=== PATIENT | female | born 1930 | race Caucasian/White ===

== ENCOUNTER 2017-11-05 13:18 | Inpatient (IN) | payer MEDICARE ==
[2017-11-05] MEDS ORDERED: Enoxaparin Sodium 60 MG/0.6 ML SYRINGE ONE (14:01)
[2017-11-05] MEDS ORDERED: Magnesium Sulfate 2 GM/100 ML BAG ONE (14:01)
[2017-11-05 15:55] LABS: Bilirubin Negative (Negative); Blood, Urine Negative (Negative); Clarity CLOUDY (Clear); Glucose, Urine (Dipstick) 100 mg/dL (Negative); Leukocyte Small (Negative); Nitrite Positive (Negative); Protein, Urine (Dipstick) Negative (Neg-Trace); Specific Gravity, Urine 1.018 (1.002-1.036); Urobilinogen 0.2 mg/dL (0.2-1.0)
[2017-11-05 15:56] LABS: Bacteria/HPF 4+ HPF (None Seen); Hyaline Casts/LPF 0-3 HYALINE CAST LPF (0-3 Hyaline); Squamous Epithelial 0-3 HPF (0-3)
[2017-11-05 15:58] LABS: Yeast-AUWi Flag 88.4 (0-25.0)
[2017-11-05 16:06] LABS: RBC/HPF None Seen HPF (0-3); Yeast-All Forms None Seen HPF (None Seen)
[2017-11-05 18:20] VITALS: BMI 23.2
[2017-11-05] MEDS ORDERED: hydrALAZINE 20 MG/ML VIAL SLOW IVP PRN (18:55)
[2017-11-05] MEDS ORDERED: HumaLOG 300 UNITS/3 ML VIAL SC PRN ×2 (18:55)
[2017-11-05] MEDS ORDERED: Acetaminophen 500 MG TAB PO PRN (18:55)
[2017-11-05] MEDS ORDERED: Dextrose 50% Abboject 50 ML SYRINGE SLOW IVP PRN (18:55)
[2017-11-05] MEDS ORDERED: Dextrose 5% in Water 1,000 ML IV PRN (18:55)
[2017-11-05] MEDS ORDERED: Ondansetron HCl/PF 4 MG/2 ML Vial IVP PRN (18:55)
[2017-11-05] MEDS ORDERED: Ondansetron ODT 4 MG TAB PO PRN (18:55)
[2017-11-05] MEDS ORDERED: cloNIDine 0.1 MG TAB PO PRN (18:55)
[2017-11-05] MEDS ORDERED: Aspirin 81 mg Enteric Coated Tablet PO SCH (19:00)
[2017-11-05] MEDS: Carbidopa/Levodopa 25-250 mg Tablet PO SCH (20:53)
[2017-11-05] MEDS: Famotidine 20 MG TAB PO SCH (20:54)
[2017-11-05] MEDS ORDERED: Donepezil HCl 10 MG TAB PO SCH (21:00)
[2017-11-05] MEDS ORDERED: FLUOCINONIDE 0.05% TOP SCH (21:00)
[2017-11-05] MEDS ORDERED: Amitriptyline HCl 25 MG TAB PO SCH (21:00)
[2017-11-05] MEDS ORDERED: Betamethasone Val 0.1% Lotion 60 ML BOT TOP SCH ×2 (21:00)
--- NOTE | 2017-11-06 03:27 | HP ---
DATE OF ADMISSION: 11/05/2017 PRIMARY CARE PHYSICIAN: Jimmie Denise M.D. CHIEF COMPLAINT: Heart palpitations. HISTORY OF PRESENT ILLNESS: This is an 87-year-old female who presented to [facility] after abrupt onset of palpitations. The patient states she felt generally weak, h ad trouble focusing her eyes and felt off balance. The patient states the symptoms began approximate ly 9:00 a.m. on 11/05/2017 with a history of long-term management for atrial arrhythmia with digoxin. The patient states she was recently placed on prednisone after a "muscle pull" after cleaning out h er garage. The patient denied any other change to her chronic medication regimen or exposure history . The patient denied any fever, chills, nausea, vomiting, diarrhea or chest pain. The patient denie d any travel history, prolonged sitting, recent falls or injuries. The patient denied any specific i ncreased caffeine intake or caffeine intake. The patient denied any specific change to her activity level, but her daughter reports some decreased overall activities due to diagnosis of Parkinson's and some difficulty ambulating outside. The patient states she did not try any home remedy to alleviate her symptoms and presented to the emergency room for evaluation. In the emergency room, the patient was noted with atrial fibrillation with rapid ventricular response with heart rates in the 120s to 1 30s. The patient was treated with IV digoxin in addition to intravenous diltiazem after a 20 mg bolu s. The patient also received intravenous fluids and potassium chloride supplement. The patient was transferred to the telemetry unit for evaluation and apparently converted to sinus mechanism prior to arrival. The patient denied any previous history of similar events, anticoagulation treatment or lo ng-term aspirin therapy. PAST MEDICAL HISTORY: 1. Question of atrial arrhythmia, treated with digoxin. 2. Parkinson's disease. 3. Question of early dementia. 4. Diabetes mellitus, type 2. 5. Hypertension. 6. Mitral valve regurgitation. 7. Coronary artery disease. 8. Acute angle closure glaucoma. 9. History of gait disturbance. 10. History of syncope, noncardiac, likely noncardiac etiology. 11. Hyperlipidemia. PAST SURGICAL HISTORY: Reviewed and negative. CURRENT MEDICATIONS: 1. Amitriptyline 25 mg 1 tab p.o. at bedtime. 2. Prednisone 4 mg 1 tab p.o. daily. 3. Amlodipine 10 mg 1 tab p.o. daily. 4. Carbidopa/levodopa 25/250 mg 2 tabs p.o. t.i.d. 5. Digoxin 125 mcg p.o. daily. 6. Donepezil 10 mg p.o. at bedtime. 7. Synalar 0.05% 1 drop to each eye at bedtime. 8. Amaryl 4 mg 1 tab p.o. daily. 9. HCTZ 25 mg 1 tab p.o. daily. 10. Lisinopril 20 mg 1 tab p.o. daily. 11. Metformin 500 mg p.o. t.i.d. ALLERGIES: No known drug allergies. FAMILY HISTORY: Father at the age of 95 secondary to complications of advanced age. Mother d at 76 due to cardiac problems and questionable cancer. SOCIAL HISTORY: The patient is , resides in [place], [place], near her daughters. No current alcohol, tobacco or illicit drug use. Ambulates with a 4-wheeled walker. No recent falls. REVIEW OF SYSTEMS: The following complete review of systems was negative, unless otherwise mentioned in the HPI or below: Constitutional: Weight loss or gain, ability to conduct usual activities. Skin: Rash, itching. Eyes: Double vision, pain. ENT/Mouth: Nose bleeding, neck stiffness, pain, tenderness. Cardiovascular: Palpitations, dyspnea on exertion, orthopnea. Respiratory: Shortness of breath, wheezing, cough, hemoptysis, fever or night sweats. Gastrointestinal: Poor appetite, abdominal pain, heartburn, nausea, vomiting, constipation, or diarr hea. Genitourinary: Urgency, frequency, dysuria, nocturia. Musculoskeletal: Pain, swelling. Neurologic/Psychiatric: Anxiety, depression. Allergy/Immunologic: Skin rash, bleeding tendency. Otherwise negative except as stated per HPI. PHYSICAL EXAMINATION: VITAL SIGNS: On admission, blood pressure 153/70, pulse 68, respiratory rate 18, temperature 99.6 de grees Fahrenheit, O2 saturation 99% on room air. GENERAL APPEARANCE: This is an 87-year-old female, alert, pleasant, responsive, in no acut e distress. HEENT: Pupils are equal, round, and reactive to light and accommodation. Extraocular muscles are in tact. No scleral icterus, no conjunctival injection. Nares patent. OP is clear. Teeth in good rep air. NECK: Supple, no cervical adenopathy, no thyromegaly, no carotid bruits, no JVD appreciated. Cervic al spine with full active and passive range of motion. No meningeal signs appreciated. CHEST: Lungs are clear to auscultation bilaterally. CARDIOVASCULAR: S1, S2 with a 1-2/6 systolic ejection murmur, loudest in the right upper sternal bor krystle. ABDOMEN: Rounded, soft, nontender, nondistended. Bowel sounds are positive in all four quadrants. There is no hepatosplenomegaly, no abdominal bruits, no rebound or guarding appreciated. EXTREMITIES: Warm and dry with good turgor. No clubbing, cyanosis or asymmetric edema appreciated. Pulses palpable distally at the dorsalis pedis, posterior tibial, and popliteal arteries bilaterally . Capillary refill less than 2 seconds. NEUROLOGIC: Cranial nerves II-XII are grossly intact. No focal or lateralizing signs appreciated. PERTINENT LABORATORY AND X-RAY FINDINGS: Sodium 138, potassium 3.3, chloride 99, CO2 of 27, BUN 17, creatinine 0.75, estimated GFR is 73, glucose 217. Hemoglobin A1C 5.9 on 09/07/2017, calcium 9.5, LF Ts within normal limits. BNP 133, Troponin I negative x1. Albumin 4.0. TSH 1.12 on 11/05/2017. CB C within normal limits. Urinalysis positive for glucose, nitrites, small leukocyte esterase with 4-6 wbc's per high power field. Digoxin level 0.54 on 11/05/2017. Portable chest x-ray dated 7 showed no acute cardiopulmonary process. EKG dated 11/05/2017 by my interpretation shows atrial fi brillation with heart rates in the mid 115-120s. Normal R-wave progression noted in the precordial l [place]. Normal axis. ASSESSMENT AND PLAN: 1. Atrial fibrillation with rapid ventricular response. The patient admitted to the telemetry unit. We will continue Cardizem drip at 5 mg per hour. We will obtain 2D transthoracic echocardiogram in the a.m. to assess valvular function and ejection fraction. Consider titration of current digoxin r egimen from 125 mcg daily to 250 mcg daily. Start aspirin 81 mg p.o. daily. Check magnesium level i n the a.m. 2. Hypertension. Resume home antihypertensive regimen and monitor clinical response. 3. Diabetes mellitus, type 2. Insulin sliding scale for reflexive coverage. Resume home oral hypog lycemics. Insulin sliding scale for reflexive coverage. Accu-Cheks before meals and at bedtime. AD A diet. 4. Parkinson's disease. We will continue home regimen of carbidopa/levodopa 2 tabs p.o. t.i.d. 5. Prophylaxis. Sequential compression devices while in bed. Pepcid 20 mg p.o. b.i.d. 6. Code status is FULL. Surrogate medical decision maker is the patient's daughter.
[2017-11-06 06:07] LABS: Anion Gap 9 mmol/L (10-20); BUN (Urea Nitrogen) 13 mg/dL (9.8-20.1); Calc. Creatinine Clearance 58 mL/min (70-130); Calcium 8.5 mg/dL (7.8-10.44); Carbon Dioxide 28 mmol/L (23-31); Chloride 103 mmol/L (98-107); Estimated GFR-MDRD 86; Glucose 68 mg/dL (83-110); Magnesium 2.1 mg/dL (1.6-2.6); Potassium 3.5 mmol/L (3.5-5.1); Sodium 136 mmol/L (136-145)
[2017-11-06 07:46] LABS: Band 2 % (5-11); Eosinophils 1 % (0-10); Hemoglobin 10.7 g/dL (12.0-16.0); Lymphocytes 37 % (21-51); MDiff Complete? YES; Mean Corpuscular HGB CONC 32.4 g/dL (32.0-36.0); Mean Corpuscular Hemoglobin 28.2 pg (27.0-31.0); Mean Platelet Volume 6.5 fL (7.4-10.4); Monocytes 7 % (0-10); Neutrophil 53 % (42-75); Platelet Count 276 thou/uL (130-400); RBC Distribution Width 11.6 % (11.5-14.5); Red Blood Cell (RBC) Count 3.79 mill/uL (4.20-5.40)
[2017-11-06] MEDS: Carbidopa/Levodopa 25-250 mg Tablet PO SCH ×2 (08:26→15:25)
[2017-11-06] MEDS: Famotidine 20 MG TAB PO SCH (08:26)
[2017-11-06] MEDS: metFORMIN 500 MG TAB PO SCH ×2 (08:27→12:11)
[2017-11-06] MEDS ORDERED: Digoxin 0.125 MG TAB PO SCH (09:00)
[2017-11-06] MEDS ORDERED: Aspirin 81 mg Enteric Coated Tablet PO SCH (09:00)
[2017-11-06] MEDS ORDERED: Glimepiride 4 MG TAB PO SCH (09:00)
[2017-11-06] MEDS ORDERED: Lisinopril 20 MG TAB PO SCH (09:00)
[2017-11-06] MEDS ORDERED: Amlodipine 10 MG TAB PO SCH (09:00)
[2017-11-06] MEDS ORDERED: Hydrochlorothiazide 25 MG TAB PO SCH (09:00)
[2017-11-06 15:51] VITALS: BP 166/74; TEMP 98.2
--- NOTE | 2017-11-07 03:00 | DIS ---
DATE OF ADMISSION: 11/05/2017 DATE OF DISCHARGE: 11/06/2017 DISCHARGE DIAGNOSES: 1. Paroxysmal atrial fibrillation with rapid ventricular response with current sinus mechanism. 2. Hypertension, stable. 3. Diabetes mellitus type 2, stable. 4. Parkinson disease. CONSULTATIONS: None. PERTINENT LAB AND X-RAY FINDINGS: Basic metabolic profile within normal limits. Calcium 8.5, magnes ium 2.1. TSH 1.12. CBC showed a hemoglobin of 11, hematocrit 33, platelet count 276. A 2D transtho racic echocardiogram dated 11/06/2017 showed ejection fraction of 50%-55%. Diastolic dysfunction not ed, mild aortic and tricuspid regurgitation. HOSPITAL COURSE: Patient was admitted to the telemetry unit after initially presenting with palpitat ions with associated atrial fibrillation and rapid ventricular response. Patient was initially manag ed with Cardizem infusion with rapid conversion to sinus mechanism in less than 12 hours. Patient ma intained sinus mechanism through the remainder of the hospital course and was initiated on Coreg 6.25 mg b.i.d. in addition to Digoxin 0.125 mg daily. Patient was recommended for aspirin 81 mg daily an d hold anticoagulation at this time. Overall, patient remained clinically stable through the remaind er of the hospital course and ready for discharge on 11/06/2017. DISCHARGE MEDICATIONS: 1. Coreg 6.25 mg 1 tab p.o. b.i.d. 2. Digoxin 125 mcg 1 tab p.o. daily. 3. Amitriptyline 25 mg p.o. at bedtime. 4. Amlodipine 10 mg 1 tab p.o. daily. 5. Aspirin enteric coated 81 mg 1 tab p.o. daily. 6. Carbidopa/levodopa 25/250 mg 2 tabs p.o. t.i.d. 7. Donepezil 10 mg p.o. at bedtime. 8. Fluocinonide 0.05% 1 drop to each eye at bedtime. 9. Amaryl 4 mg p.o. daily. 10. HCTZ 25 mg p.o. daily. 11. Lisinopril 20 mg 1 tab p.o. daily. 12. Metformin 500 mg p.o. t.i.d. 13. Prednisone taper. FOLLOWUP: Patient will follow up with her primary care provider, Dr. Rob Denise within 7 days. CONDITION ON DISCHARGE: Stable. ACTIVITY: ad rell. DIET: Heart healthy and ADA. CODE STATUS: FULL. DISPOSITION: Home, 11/06/2017.
== END 2017-11-06 16:16 | disposition home or self-care (01) | DRG 310 ==
LOC: ERS 13:18 → 2NO 14:25
PROVIDERS: ADMIT Family Medicine; ATTEND Family Medicine
DX: I48.0 Paroxysmal atrial fibrillation (principal); G20 Parkinson's disease; E11.9 Type 2 diabetes mellitus without complications; I10 Essential (primary) hypertension; I25.10 Atherosclerotic heart disease of native coronary artery without angina pectoris; H40.20X0 Unspecified primary angle-closure glaucoma, stage unspecified; E78.5 Hyperlipidemia, unspecified; I34.0 Nonrheumatic mitral (valve) insufficiency; X50.0XXD Overexertion from strenuous movement or load, subsequent encounter; T14.8XXD Other injury of unspecified body region, subsequent encounter; Z79.52 Long term (current) use of systemic steroids
CPT/HCPCS: 36415; 36416; 80048; 81003; 81015; 83735; 84443; 85007; 85027; 93005; 93306; 96365; 96372; 96375; J0696; J1650; J3475

== ENCOUNTER 2019-02-14 00:44 | Observation (INO) | payer MEDICARE ==
--- NOTE | 2019-02-14 01:42 | PDOC.FPRHP ---
- History of Present Illness Chief Complaint: weakness History of Present Illness: 88yo F with pmh of dementia and DM presents as transfer from [facility] [facility] for generalized weakness and was found there to have UA showing UTI with lactic acidosis of 3.7 and lateral lead EKG changes. Pt reports that on 02/13 she started having bilateral lower extremety weakness. Pt has been declining for some time with dementia but this weakness was worse than before and she could not get herself out of the chair. Otherwise she has a negative extensive ROS as listed below. Pt was given Zosyn and 1L IVF in outside ER ED Course: see above - Allergies/Adverse Reactions Allergies Allergy/AdvReac Type Severity Reaction Status Date / Time No Known Allergies Allergy Verified 11/05/17 23:54 - Home Medications Medication Instructions Recorded Confirmed Type Amlodipine Besylate [amLODIPine 10 mg PO DAILY 12/30/15 02/14/19 History Besylate] Digoxin [Digitek] 125 mcg PO DAILY 12/30/15 02/14/19 History Hydrochlorothiazide 25 mg PO QAM 12/30/15 02/14/19 History Lisinopril 20 mg PO DAILY 12/30/15 02/14/19 History metFORMIN [Glucophage] 500 mg PO TID-WM 12/30/15 02/14/19 History Amitriptyline HCl 25 mg PO HS PRN 11/05/17 02/14/19 History Donepezil HCl 10 mg PO QAM 11/05/17 02/14/19 History Glimepiride [Amaryl] 4 mg PO DAILY 11/05/17 02/14/19 History Aspirin [Ecotrin Low Strength] 81 mg PO DAILY tab 11/06/17 02/14/19 Rx Carvedilol [Coreg] 6.25 mg PO BID #60 tab 11/06/17 02/14/19 Rx Carbidopa/Levodopa 2 tablet PO TID 02/14/19 02/14/19 History [Carbidopa/Levodopa ER] - History PMHx: Lewy body dementia, DM, HTN, a-fib PSHx: none FHx: CHF Social: denies t/a/d - Review of Systems General: denies: fever/chills, fatigue Eyes: denies: eye pain, vision changes ENT: denies: nasal congestion, rhinorrhea Respiratory: denies: cough, shortness of breath Cardiovascular: denies: chest pain, palpitation Gastrointestinal: denies: nausea, vomiting Genitourinary: denies: incontinence, dysuria, polyuria Skin: denies: rashes, lesions Musculoskeletal: denies: pain, tenderness Neurological: denies: syncope, seizure Psychological: denies: anxiety, depression - Vital signs BP: 162/80, Pulse: 86, Resp: 16, Temp: 98.5 (Oral), Pain: 0, O2 sat: 98 on Room Air, Time: 02/14/2019 00:45. weight 66kg - Physical Exam Constitutional: NAD, well developed HEENT: PERRLA, EOMI, grossly normal vision, grossly normal hearing Neck: supple, trachea midline Chest: no-tender to palpation, no lesions Heart: RRR, other (3/6 holosystolic murmur (old)) Lungs: CTAB, no wheezing Abdomen: soft, other (suprapubic tenderness) Musculoskeletal: normal structure, normal tone Neurological: no focal deficit, CN II-XII intact, normal sensation, DTRs 2+ -Neurological: impaired recent memory Skin: no rash/lesions, good turgor Heme/Lymphatic: no purpura, no petechia Psychiatric: normal mood and affect, good judgment and insight FMR H&P: A/P - Problem List (1) Lactic acid acidosis Current Visit: Yes Status: Acute Code(s): E87.2 - ACIDOSIS (2) UTI (urinary tract infection) Current Visit: Yes Status: Acute (3) Lewy body dementia Current Visit: Yes Status: Acute Code(s): G31.83 - DEMENTIA WITH LEWY BODIES ; F02.80 - DEMENTIA IN OTH DISEASES CLASSD ELSWHR W/O BEHAVRL DISTURB (4) Afib Current Visit: Yes Status: Acute Code(s): I48.91 - UNSPECIFIED ATRIAL FIBRILLATION - Plan Lactic Acidosis A- Likely 2/2 mild hypovolemia vs. UTI vs. diabetic etiology. Pt is hyperglycemic and is on metformin. Pt is questionable historian and appears mildly dry on exam. s/p 1L IVF P- continue LR 100/hr - repeat LA UTI A- UA shows positive nitrites. Pt denies dysuria but does not remeber talking to her daughter about pain on urination. Questionable hisorian, additionally she does have some mild suprapubic ttp. s/p zosyn P- start rocephin - f/u with lab if UCx were sent over from [place] bilateral leg weakness A- Likely 2/2 parkinsonian features of her lewy body dementia, digoxin lvl is sub therapeutic. CT brain negative and hx atypical for CVA. P- PT/OT consult Lewy body dementia - home meds HTN - home meds DM - home meds, SSI, accuchecks afib - home meds CODE: FULL FMR H&P: Upper Level - Pertinent history Denisha Gilbert is an 88 year old female with a history of Lewy body dementia who was transferred from [place] [facility] due lactic acidosis and abnormal EKG. She initially presented there due to sudden onset lower extremity weakness.She was also found to have a UTI. - Pertinent findings Exam General: alert and oriented to person and place. Lungs: celar to auscultation bilaterally Heart: regular rate and rhythm, 3/6 holosystolic murmur, rubs, or gallops. Abdomen: soft; suprapubic tenderness to palpation Extremities: normal bulk and tone; 5/5 strength throughout. Neuro: CN II-XII intact grossly; no focal deficits. CT head w/o contrast: negative for acute intracranial pathology. EKG: NSR; no ST elevations; ST-T changes in lateral leads, consistent with prior EKGs. - Plan Date/Time: 02/14/19 0140 IShiela, have evaluated this patient and agree with findings/plan as outlined by safety intern resident. Pertinent changes/additions are listed here. Lactic acidosis - normal renal function; no sepsis. - likely secondary to dehydration, s/p 1L bolus in ED; will continue maintenance. Lower extremity weakness - no weakness noted on exam. - likely related to Lewy body dementia; - PT consult to evaluate functional status. Subtherapeutic digoxin level - possibly due to improper timing in relation to medication administration - will repeat level today UTI - will treat with Rocephin. Regarding pt's chronic medical problems, will resume home medications as described above.
[2019-02-14 02:31] LABS: Troponin I Less than 0.010 ng/mL (< 0.028)
[2019-02-14] MEDS ORDERED: Dextrose 5% in Water 1,000 ML IV PRN (03:22)
[2019-02-14] MEDS ORDERED: Lactated Ringer's 1,000 ML IV SCH (03:22)
[2019-02-14] MEDS ORDERED: Calcium Carbonate 500 MG ChewTAB PO PRN (03:22)
[2019-02-14] MEDS ORDERED: Dextrose 50% Abboject 50 ML SYRINGE SLOW IVP PRN (03:22)
[2019-02-14] MEDS ORDERED: HumaLOG 300 UNITS/3 ML VIAL SC PRN (03:22)
[2019-02-14] MEDS ORDERED: Acetaminophen 325 MG TAB PO PRN (03:22)
[2019-02-14 04:00] VITALS: BMI 20.9
[2019-02-14] MEDS ORDERED: cefTRIAXone\\ROCEPHIN 1 GM in Sodium Chloride 0.9% 100 ML IVPB SCH (06:00)
[2019-02-14 06:13] LABS: Lactic Acid 1.8 mmol/L (0.5-2.2)
[2019-02-14 06:21] LABS: Troponin I Less than 0.010 ng/mL (< 0.028)
--- NOTE | 2019-02-14 07:09 | PDOC.FM ---
- Subjective Subjective: pt resting comfortably in bed, tolerating PO well. Daughter reports she is doing better today. - Objective Vital Signs & Weight: Vital Signs (12 hours) Temp Pulse Resp BP Pulse Ox 02/14/19 02:45 98 F 86 20 162/83 H 96 Weight Weight 60.583 kg Phys Exam - Physical Examination Constitutional: NAD HEENT: moist MMs Neck: no nodes Gastrointestinal: no distention Musculoskeletal: no edema Neurological: moves all 4 limbs Lymphatic: no nodes Psychiatric: normal affect Skin: no rash Dx/Plan (1) Afib Code(s): I48.91 - UNSPECIFIED ATRIAL FIBRILLATION Status: Acute (2) Lactic acid acidosis Code(s): E87.2 - ACIDOSIS Status: Acute (3) Lewy body dementia Code(s): G31.83 - DEMENTIA WITH LEWY BODIES; F02.80 - DEMENTIA IN OTH DISEASES CLASSD ELSWHR W/O BEHAVRL DISTURB Status: Acute (4) UTI (urinary tract infection) Status: Acute - Plan Plan: Lactic Acidosis - Likely 2/2 mild hypovolemia vs. UTI vs. diabetic etiology. Pt is hyperglycemic and is on metformin. Pt is questionable historian and appears mildly dry on exam. s/p 1L IVF - continue LR 100/hr - repeat LA improved to 1.7 UTI - UA shows positive nitrites. Pt denies dysuria but does not remember talking to her daughter about pain on urination. Questionable hisorian, additionally she does have some mild suprapubic ttp. s/p zosyn - continue rocephin - f/u with lab if UCx were sent over from [facility] bilateral leg weakness - Likely 2/2 parkinsonian features of her lewy body dementia, digoxin lvl is sub therapeutic. CT brain negative and hx atypical for CVA. - PT/OT consult Lewy body dementia - home meds HTN - home meds DM - home meds, SSI, accuchecks afib - home meds CODE: FULL Dispo: await cultures, de-escalate abx, evaluate strength
[2019-02-14] MEDS ORDERED: Glimepiride 4 MG TAB PO SCH (07:30)
[2019-02-14] MEDS ORDERED: metFORMIN 500 MG TAB PO SCH (08:00)
[2019-02-14] MEDS: Carbidopa/Levodopa CR 50-200 mg Tablet PO SCH ×2 (08:40→08:47)
[2019-02-14] MEDS ORDERED: Hydrochlorothiazide 25 MG TAB PO SCH (09:00)
[2019-02-14] MEDS ORDERED: Carvedilol 6.25 MG TAB PO SCH (09:00)
[2019-02-14] MEDS ORDERED: Digoxin 0.125 MG TAB PO SCH (09:00)
[2019-02-14] MEDS ORDERED: Amlodipine 10 MG TAB PO SCH (09:00)
[2019-02-14] MEDS ORDERED: Lisinopril 20 MG TAB PO SCH (09:00)
[2019-02-14] MEDS ORDERED: Aspirin 81 mg Enteric Coated Tablet PO SCH (09:00)
[2019-02-14 11:22] VITALS: TEMP 98.8
--- NOTE | 2019-02-14 11:27 | PRG ---
DATE OF SERVICE: 02/14/2019 Ms. Gilbert is a pleasant 88-year-old lady with a history of dementia, who was admitted with some lower extremity weakness, which is this morning improved. She was also noted to have an elevated lactic acid level of 3.7, as well as an abnormal urinalysis. She had perhaps some slight suprapubic tenderness, but no dysuria, frequency, or urgency. She is afebrile with stable vital signs. She has been covered for possible UTI with a dose of Rocephin. We can discharge her later today to complete treatment for possible UTI versus asymptomatic bacteriuria as an outpatient. Job ID: [id number]
[2019-02-14 13:13] VITALS: BP 184/81
[2019-02-14] MEDS ORDERED: Amitriptyline HCl 25 MG TAB PO SCH (21:00)
[2019-02-14] MEDS ORDERED: Donepezil HCl 10 MG TAB PO SCH (21:00)
[2019-02-14] MEDS ORDERED: Nitrofurantoin Monohyd/M-Cryst 100 MG CAP PO SCH (21:00)
--- NOTE | 2019-02-15 13:12 | DIS ---
DATE OF ADMISSION: 02/14/2019 DATE OF DISCHARGE: 02/14/2019 DISCHARGE ATTENDING: Dr. Nelson Anthony. RESIDENT: Dr. Fracisco Lara. CONSULT: None. IMAGING: None. MEDICATIONS: 1. Digoxin 125 mcg p.o. daily. 2. Metformin 500 mg p.o. t.i.d. with meals. 3. Lisinopril 20 mg p.o. daily. 4. Amlodipine 10 mg p.o. daily. 5. Hydrochlorothiazide 25 mg p.o. q.a.m. 6. Glimepiride 4 mg p.o. daily. 7. Donepezil 10 mg p.o. q.a.m. 8. Amitriptyline 25 mg p.o. at bedtime p.r.n. 9. Aspirin 81 mg p.o. daily. 10. Coreg 6.25 mg p.o. b.i.d. 11. Carbidopa and levodopa two tablets p.o. t.i.d. 12. Macrobid 100 mg p.o. b.i.d. for two days. PRIMARY DIAGNOSIS: Weakness secondary to hypovolemia. SECONDARY DIAGNOSES: 1. Urinary tract infection. 2. Lactic acidosis. 3. Lewy body dementia. 4. Hypertension. 5. Diabetes mellitus. 6. Atrial fibrillation. HISTORY OF PRESENT ILLNESS/HOSPITAL COURSE: This is an 88-year-old female with past medical history significant for dementia and diabetes mellitus, who presents as transfer from [facility] for generalized weakness and positive UA with lactic acidosis. The patient arrives to [facility] and report from family that the patient was generally weak than normal, normally ambulates on her own, lives at home by herself with close family support. The patient's vital signs were stable, remained afebrile, was started on IV antibiotics to treat the UTI. Received Zosyn in outside ER and 1 g Rocephin when arriving. After arriving at [facility], the patient's lactic acidosis corrected with IV fluids. PT and OT consulted, and with the patient able to ambulate successfully the following day, the family reported the patient seemed to be back at baseline, deemed stable for discharge home. The patient remained afebrile. Vital signs remained stable throughout hospital stay, tolerating p.o. well. Deemed stable for discharge. DIET: Diabetic. ACTIVITY: As tolerated. FOLLOWUP: Follow up with PCP, Dr. Denise in the next 2 to 3 days. Job ID: [id number]
== END 2019-02-14 12:39 | disposition home or self-care (01) ==
LOC: ERS 00:44 → 2SE 02:36 → INTOOBSV 02:36
PROVIDERS: ADMIT Student in an Organized Health Care Education/Training Program; ATTEND Student in an Organized Health Care Education/Training Program
DX: E86.1 Hypovolemia (principal); R53.1 Weakness; N39.0 Urinary tract infection, site not specified; E87.2 Acidosis; G31.83 Neurocognitive disorder with Lewy bodies; F02.80 Dementia in other diseases classified elsewhere, unspecified severity, without behavioral disturbance, psychotic disturbance, mood disturbance, and anxiety; I10 Essential (primary) hypertension; E11.9 Type 2 diabetes mellitus without complications; I48.91 Unspecified atrial fibrillation; Z79.82 Long term (current) use of aspirin; Z79.84 Long term (current) use of oral hypoglycemic drugs; Z79.899 Other long term (current) drug therapy
CPT/HCPCS: 82962; 83605; 84484 ×2; 96361; 96365; 97139 ×2; 97530; 99285; G0378 ×2; 36415; 36416; J0696; J7050

== ENCOUNTER 2019-06-07 10:24 | Emergency (ER) | payer MEDICARE, MEDICAID ==
[2019-06-07 11:23] LABS: #Eosinphils 0.1 thou/uL (0.0-0.7); #Lymphocytes 1.3 thou/uL (1.20-3.40); #Monocytes 0.7 thou/uL (0.11-0.59); #Neutrophils 5.6 thou/uL (1.40-6.50); %Eosinophils 1.5 % (0.0-10.0); %Lymphocytes 16.9 % (21.0-51.0); %Monocytes 9.4 % (0.0-10.0); %Neutrophils 72.1 % (42.0-75.0); Hemoglobin 11.1 g/dL (12.0-16.0); Mean Corpuscular HGB CONC 33.9 g/dL (32.0-36.0); Mean Corpuscular Hemoglobin 27.3 pg (27.0-31.0); Mean Corpuscular Volume 80.4 fL (78.0-98.0); Mean Platelet Volume 7.1 fL (7.4-10.4); Platelet Count 253 thou/uL (130-400); RBC Distribution Width 11.7 % (11.5-14.5); Red Blood Cell (RBC) Count 4.05 mill/uL (4.20-5.40); White Blood Cell (WBC) Count 7.7 thou/uL (4.8-10.8)
[2019-06-07 11:48] LABS: ALT (SGPT) Less than 7 U/L (8-55); AST (SGOT) 8 U/L (5-34); Albumin 3.7 g/dL (3.4-4.8); Alkaline Phosphatase 66 U/L (40-150); Anion Gap 13 mmol/L (10-20); BUN (Urea Nitrogen) 9 mg/dL (9.8-20.1); Bilirubin, Total 0.7 mg/dL (0.2-1.2); Calc. Creatinine Clearance 0 mL/min (70-130); Calcium 9.9 mg/dL (7.8-10.44); Carbon Dioxide 29 mmol/L (23-31); Chloride 96 mmol/L (98-107); Estimated GFR-MDRD 77; Globulin 2.7 g/dL (2.4-3.5); Glucose 276 mg/dL (83-110); Potassium 3.9 mmol/L (3.5-5.1); Protein, Total 6.4 g/dL (6.0-8.3); Sodium 134 mmol/L (136-145)
== END 2019-06-07 14:46 ==
LOC: ERS 10:24
DX: R55 Syncope and collapse (principal); I48.91 Unspecified atrial fibrillation; I10 Essential (primary) hypertension; F03.90 Unspecified dementia, unspecified severity, without behavioral disturbance, psychotic disturbance, mood disturbance, and anxiety; G20 Parkinson's disease; G47.00 Insomnia, unspecified; Z79.82 Long term (current) use of aspirin; Z79.84 Long term (current) use of oral hypoglycemic drugs; Z79.899 Other long term (current) drug therapy; Z79.891 Long term (current) use of opiate analgesic
CPT/HCPCS: 36415; 80053; 84484; 85025; 93005